=== PATIENT | female | born 1960 | race Caucasian/White ===

== ENCOUNTER 2018-02-15 13:31 | Emergency (ER) | payer OTHER, BC ==
[~2018-02-15 13:31] MED LIST changes: -DIA5 PO; -HYDR-385 PO; -LISD10TA; -META800T18 PO
--- NOTE | 2018-02-15 13:37 | ER Report ---
History and Physical Time Seen By MD: 13:37 HPI/ROS CHIEF COMPLAINT: Left lumbar and buttock pain HISTORY OF PRESENT ILLNESS: This is a 58-year-old female who presents to the emergency department via EMS for left buttock and lumbar pain. A solution for about 8:30 this morning she was bending over doing some housework and suddenly developed some left lumbar and buttock pain with some numbness and tingling down the left leg. Patient states the pain has increased she has spasms in her left buttock and now is unable to lift her left leg. Patient states the pain is very intense with any sort of movement. No loss of bowel or bladder. No recent fevers, aches or chills. REVIEW OF SYSTEMS: Constitutional: No fever, no chills. Eyes: No discharge. ENT: No sore throat. Cardiovascular: No chest pain, no palpitations. Respiratory: No cough, no shortness of breath. Gastrointestinal: No abdominal pain, no vomiting. Genitourinary: No hematuria. Musculoskeletal: As above. Skin: No rashes. Neurological: No headache. Allergies: Coded Allergies: Penicillins (Verified Allergy, Mild, HIVES, 07/13/15) bupropion (Verified Allergy, Unknown, 02/15/18) valacyclovir (Verified Allergy, Unknown, 02/15/18) venlafaxine (Verified Allergy, Unknown, 02/15/18) Home Meds Active Scripts Metaxalone (SKELAXIN) 800 Mg Tablet, 800 MG PO TID Y for prn, #12 TAB 0 Refills Prov:OSMAR BAILON [facility]- 02/15/18 Hydrocodone Bit/Acetaminophen (HYDROCODON-ACETAMINOPHEN 5-325) 1 Each Tablet, 1 EACH PO Q4-6H Y for PAIN, #8 TAB 0 Refills Prov:OSMAR BAILON [facility]-BC 02/15/18 Diazepam (VALIUM) 5 Mg Tablet, 5 MG PO 2-3XD, #15 TAB 0 Refills Prov:OSMAR BAILON [facility] 02/15/18 Methylprednisolone (METHYLPREDNISOLONE) 4 Mg Tab.ds.pk, 4 MG PO DIRECTED, #1 PACK 0 Refills Prov:OSMAR BAILON [facility]- 02/15/18 Reported Medications Lisdexamfetamine Dimesylate (Vyvanse) 10 Mg Tab.chew 02/15/18 Loratadine (CLARITIN) 10 Mg Tablet, 10 MG PO DAILY 03/15/15 Lisinopril (LISINOPRIL) 40 Mg Tablet, 40 MG PO QDAY 03/15/15 Dalfampridine (AMPYRA) 10 Mg Tabcr, 10 MG GT Q12H 03/15/15 Omeprazole Magnesium (Prilosec Otc) 20 Mg Tablet.dr, 20 MG PO QDAY, 0 Refills 04/14/09 Hydrochlorothiazide (Hydrochlorothiazide) 12.5 Mg Tablet, 25 MG PO DAILY, 0 Refills 04/14/09 Montelukast Sodium (Singulair) 10 Mg Tab, 10 MG PO QDAY, 0 Refills 04/14/09 Fluticasone Propionate (Flovent) 13 Gm Aer.w.adap, 13 GM IH BID, 0 Refills 04/14/09 Discontinued Reported Medications Methylphenidate Hcl (RITALIN) 20 Mg Tablet, 20 MG PO DAILY 07/13/15 [Glynia] No Conflict Check, 10 MG PO DAILY 03/15/15 Discontinued Scripts Methylprednisolone (METHYLPREDNISOLONE) 4 Mg Tab.ds.pk, 4 MG PO DIRECTED, #1 PACK Prov:KENYON [employer] 07/13/15 Past Medical/Surgical History Patient has a past medical and suitable history of hypertension, multiple sclerosis, asthma, suicide attempts. Hysterectomy. Lower back pain. Reviewed Nurses Notes: Yes Hx Smoking: No Smoking Status: Former Smoker Hx Substance Use Disorder: No Hx Alcohol Use: No Constitutional Vital Sign - Last 24 Hours 02/15/18 02/15/18 02/15/18 02/15/18 13:32 13:33 14:01 14:30 Temp 99.0 Pulse 84 79 Resp 20 B/P (MAP) 149/74 (99) 149/74 148/102 (117) Pulse Ox 97 98 O2 Delivery Room Air 02/15/18 02/15/18 02/15/18 02/15/18 15:00 15:05 15:30 15:35 Pulse ? B/P (MAP) 148/69 (95) ???/??? (5625) 02/15/18 02/15/18 02/15/18 02/15/18 15:52 16:00 16:05 16:10 Pulse 70 68 B/P (MAP) 131/71 (91) Pulse Ox 97 98 O2 Flow Rate 2.0 02/15/18 02/15/18 02/15/18 02/15/18 17:37 17:40 17:45 18:37 Pulse 76 76 B/P (MAP) 133/70 (91) 141/74 (96) Pulse Ox 98 97 Physical Exam General Appearance: The patient is alert, has no immediate need for airway protection and no signs of toxicity. Eyes: Pupils equal and round no pallor or injection. ENT, Mouth: Mucous membranes are moist. Respiratory: There are no retractions, lungs are clear to auscultation. Cardiovascular: Regular rate and rhythm, no murmurs, clicks or rubs. Gastrointestinal: Abdomen is soft and non tender, no masses, bowel sounds normal. Neurological: Alert and oriented 4. Moving all extremities. Following all commands. Patient has numbness and tingling to the left lower extremity, unable to lift the left lower external off the gurney. Skin: Warm and dry, no rashes. Musculoskeletal: Neck is supple non tender. Left lower back pain with palpation , no crepitus or obvious deformities. Pain down into the left buttock. Extremities are nontender, nonswollen and have full range of motion. DIFFERENTIAL DIAGNOSIS: After history and physical exam differential diagnosis was considered for back pain including but not limited to muscular pain, herniated disc, spine fracture, intra-abdominal causes and urinary tract infection. Medical Decision Making Data Points Result Diagram: 02/15/18 1415 02/15/18 1415 Laboratory Hematology Test 02/15/18 14:15 Red Blood Count 3.86 M/uL (4.17-5.56) Mean Corpuscular Volume 93.7 fL (80.0-96.0) Mean Corpuscular Hemoglobin 32.8 pg (26.0-33.0) Mean Corpuscular Hemoglobin Concent 35.0 g/dL (32.0-36.0) Red Cell Distribution Width 15.0 % (11.5-14.5) Mean Platelet Volume 7.7 fL (7.2-11.1) Neutrophils (%) (Auto) % (39.4-72.5) Lymphocytes (%) (Auto) % (17.6-49.6) Monocytes (%) (Auto) % (4.1-12.4) Eosinophils (%) (Auto) % (0.4-6.7) Basophils (%) (Auto) % (0.3-1.4) Nucleated RBC Relative Count (auto) /100WBC Neutrophils # (Auto) K/uL (2.0-7.4) Lymphocytes # (Auto) K/uL (1.3-3.6) Monocytes # (Auto) K/uL (0.3-1.0) Eosinophils # (Auto) K/uL (0.0-0.5) Basophils # (Auto) K/uL (0.0-0.1) Nucleated RBC Absolute Count (auto) K/uL Neutrophils % (Manual) 65 % (39.4-72.5) Lymphocytes % (Manual) 10 % (17.6-49.6) Monocytes % (Manual) 11 % (4.1-12.4) Eosinophils % (Manual) 14 % (0.4-6.7) Basophils % (Manual) 0 % (0.3-1.4) Peripheral Blood Smear Yes Y/N Erythrocyte Sedimentation Rate 25 mm/HOUR (0-30) Sodium Level 136 mmol/L (137-145) Potassium Level 3.7 mmol/L (3.5-5.0) Chloride Level 100 mmol/L (98-107) Carbon Dioxide Level 28 mmol/L (22-31) Blood Urea Nitrogen 13 mg/dl (7-18) Creatinine 0.70 mg/dl (0.52-1.04) Glomerular Filtration Rate Calc > 60.0 Random Glucose 96 mg/dl (75-110) Calcium Level 9.3 mg/dl (8.4-10.2) Total Bilirubin 0.7 mg/dl (0.2-1.3) Aspartate Amino Transf (AST/SGOT) 34 U/L (0-35) Alanine Aminotransferase (ALT/SGPT) 40 U/L (0-56) Alkaline Phosphatase 98 U/L (0-126) C-Reactive Protein 0.8 mg/dl (<1.0) Total Protein 7.2 g/dl (6.3-8.2) Albumin 3.9 g/dl (3.5-5.0) Chemistry Test 02/15/18 14:15 White Blood Count 5.7 k/uL (4.5-11.0) Red Blood Count 3.86 M/uL (4.17-5.56) Hemoglobin 12.7 g/dL (12.0-16.0) Hematocrit 36.2 % (34.0-47.0) Mean Corpuscular Volume 93.7 fL (80.0-96.0) Mean Corpuscular Hemoglobin 32.8 pg (26.0-33.0) Mean Corpuscular Hemoglobin Concent 35.0 g/dL (32.0-36.0) Red Cell Distribution Width 15.0 % (11.5-14.5) Platelet Count 295 K/uL (150-450) Mean Platelet Volume 7.7 fL (7.2-11.1) Neutrophils (%) (Auto) % (39.4-72.5) Lymphocytes (%) (Auto) % (17.6-49.6) Monocytes (%) (Auto) % (4.1-12.4) Eosinophils (%) (Auto) % (0.4-6.7) Basophils (%) (Auto) % (0.3-1.4) Nucleated RBC Relative Count (auto) /100WBC Neutrophils # (Auto) K/uL (2.0-7.4) Lymphocytes # (Auto) K/uL (1.3-3.6) Monocytes # (Auto) K/uL (0.3-1.0) Eosinophils # (Auto) K/uL (0.0-0.5) Basophils # (Auto) K/uL (0.0-0.1) Nucleated RBC Absolute Count (auto) K/uL Neutrophils % (Manual) 65 % (39.4-72.5) Lymphocytes % (Manual) 10 % (17.6-49.6) Monocytes % (Manual) 11 % (4.1-12.4) Eosinophils % (Manual) 14 % (0.4-6.7) Basophils % (Manual) 0 % (0.3-1.4) Peripheral Blood Smear Yes Y/N Erythrocyte Sedimentation Rate 25 mm/HOUR (0-30) Glomerular Filtration Rate Calc > 60.0 Calcium Level 9.3 mg/dl (8.4-10.2) Total Bilirubin 0.7 mg/dl (0.2-1.3) Aspartate Amino Transf (AST/SGOT) 34 U/L (0-35) Alanine Aminotransferase (ALT/SGPT) 40 U/L (0-56) Alkaline Phosphatase 98 U/L (0-126) C-Reactive Protein 0.8 mg/dl (<1.0) Total Protein 7.2 g/dl (6.3-8.2) Albumin 3.9 g/dl (3.5-5.0) EKG/Imaging Imaging EXAMINATION: MRI Lumbar spine without and with intravenous contrast HISTORY: Low back pain. Unable to left the left leg. COMPARISON: None available. TECHNIQUE: Multi-planar, multi-sequence lumbar spine MRI was performed before and after IV contrast. CONTRAST: 15 mL of IV MultiHance FINDINGS: Alignment: 3 mm of retrolisthesis of L1 over L2 and L2 over L3. Vertebral marrow signal: Discogenic fatty marrow changes at T11-T12. Mild discogenic bone marrow edema at L1-L2. Distal thoracic cord: Negative. Conus: negative, terminates at L1-L2 Cauda equina: Negative. Paravertebral soft tissues: Negative. Visualized abdominal and pelvic structures: Negative. Enhancement pattern: Mild discogenic bone marrow enhancement at L1-L2. Otherwise negative. Disc Spaces: Lower thoracic spine: Mild degenerative changes in the lower thoracic spine with mild bilateral neural foraminal stenosis at T10-T11. L1-2: Grade 1 retrolisthesis. Mild to moderate disc height loss with circumferential disc bulge, facet hypertrophy, and ligamentum flavum thickening. Mild spinal canal stenosis. Moderate bilateral neural foraminal stenosis. L2-3: Grade 1 retrolisthesis. Mild disc height loss with circumferential disc bulge, facet hypertrophy, and ligamentum flavum thickening. Mild spinal canal stenosis. Mild to moderate bilateral neural foraminal stenosis. L3-4: Minimal disc bulge. Mild to moderate facet hypertrophy and ligamentum flavum thickening. Mild spinal canal stenosis. Mild bilateral neural foraminal stenosis. L4-5: Circumferential disc bulge with superimposed left foraminal disc extrusion. Severe facet hypertrophy and ligamentum flavum thickening. Severe spinal canal stenosis. Moderate right and severe left neural foraminal stenosis. L5-S1: Moderate to severe disc height loss with circumferential disc bulge, facet hypertrophy, and ligamentum flavum thickening. Moderate right and severe left lateral recess stenosis. Moderate central spinal canal stenosis. Moderately severe bilateral neural foraminal stenosis. IMPRESSION: Multilevel degenerative disc disease and facet hypertrophy with grade 1 retrolisthesis of L1 over L2 and L2 over L3. Findings are most severe at L4-L5 and L5-S1. Please see above report for level by level description. Report Dictated By: Osmar Hughes MD at 02/15/2018 5:25 PM Report E-Signed By: Osmar Hughes MD at 02/15/2018 5:33 PM WSN:[email or web address] ED Course/Re-evaluation Clinical Indication for ER IV: Hydration, IV Access ED Course The patient was amended to room. His ribs were obtained. Diagnoses were considered. IV was started. A CBC, CMP were obtained. Lab studies unremarkable. Patient was given 125 mg IV site Medrol, 4 mg IV Zofran, 4 mg IV morphine, 30 mg IV Norflex, 50 g IV fentanyl 2, 0.5 mg IV Ativan, 5 mg IV diazepam. Initial attempt at the MRI was unsuccessful with the Ativan, patient stated that the pain was too intense I did order the diazepam which seemed to help relax her lower back. To complete the lumbar MRI. The MRI Multilevel degenerative disc disease and facet hypertrophy with grade 1 retrolisthesis of L1 over L2 and L2 over L3. Findings are most severe at L4-L5 and L5-S1 I did review these results with the patient. I did tell him that I spoke with Dr. Palafox regarding her case and his recommendation was to continue the steroids with a Medrol Dosepak, manage the pain and have her follow-up with him and his office on Tuesday. The patient was in agreement with this plan of care. Patient was also concerned about her inability to ambulate at home they were stopped by her work and use a wheelchair to get her in and out of the house, the is at the bedside and able to help. Patient states she is willing to give this a try. I did send the prescription for Valium, hydrocodone, Medrol Dosepak and Skelaxin to the patient's pharmacy. The patient was in agreement with this plan of care and discharged home. Patient also understands that if she needs to return for any other concerns especially saddle anesthesias loss of bowel or bladder she will return immediately. 02/15/2018 5:58:22 pm I did go back in to reevaluate the patient, she states the pain is significantly improved however she is still unable to lift her left leg off the gurney. Once again I did tease out if this is an inability to lift the leg because of increased pain or she physically cannot lift her leg patient states it's not a pain it's inhibiting her it's the inability to actually lift the leg off the gurney. I am contacting the orthopedist behavioral intervention specialist for consultation. 02/15/2018 6:23:45 pm I did speak with Dr. Palafox regarding the patient's case , he said go ahead and place her on a Medrol Dosepak treat her pain go ahead and send her home. If she needs to return to the emergency department she concerned might do so. He will see her in his clinic Tuesday. Patient does understand that if she has any loss of bowel or bladder any saddle paresthesias that she is to return to the emergency department immediately. Decision to Disposition Date: Feb 15, 2018 Decision to Disposition Time: 18:23 Depart Departure Latest Vital Signs Vital Signs Date Time Temp Pulse Resp B/P (MAP) Pulse Ox O2 Delivery O2 Flow Rate FiO2 02/15/18 18:37 141/74 (96) 02/15/18 17:45 76 97 02/15/18 15:52 2.0 02/15/18 13:33 99.0 20 Room Air Impression: Primary Impression: Lumbar back pain with radiculopathy affecting left lower extremity Additional Impressions: Lumbar degenerative disc disease Left leg pain Condition: Improved Disposition: HOME OR SELF-CARE Referrals: DIOGENES AVENDANO DO (PCP) HOLLI PALAFOX MD New Scripts Metaxalone (SKELAXIN) 800 Mg Tablet 800 MG PO TID Y for prn, #12 TAB 0 Refills Prov: OSMAR BAILON [employer]-[facility] 02/15/18 Hydrocodone Bit/Acetaminophen (HYDROCODON-ACETAMINOPHEN 5-325) 1 Each Tablet 1 EACH PO Q4-6H Y for PAIN, #8 TAB 0 Refills Prov: OSMAR BAILON [employer] 02/15/18 Diazepam (VALIUM) 5 Mg Tablet 5 MG PO 2-3XD, #15 TAB 0 Refills Prov: OSMAR BAILON [employer] 02/15/18 Methylprednisolone (METHYLPREDNISOLONE) 4 Mg Tab.ds.pk 4 MG PO DIRECTED, #1 PACK 0 Refills Prov: OSMAR BAILON-BC 02/15/18 Patient Instructions: Acute Low Back Pain (ED), Degenerative Disc Disease (ED) , Lumbar Radiculopathy (ED) Additional Instructions: Drink plenty of water. Try to get as much rest as possible. Take the Medrol Dosepak as indicated. Take the Valium as directed. Take the Hydrocodone for severe pain. Be very careful taking the Valium and hydrocodone together, they can decrease respiratory drive. No drinking or driving while taking controlled substances. Take the Skelaxin for muscle spasms. Called Dr. Palafox's office in the morning to schedule a follow-up appointment. Return to the emergency department for numbness or tingling in the genital region, loss of bowel or bladder, or severe intractable pain. Problem Qualifiers OSMAR BAILON [employer] Feb 15, 2018 13:37
[2018-02-15] MEDS ORDERED: LISD10TA (13:41)
[2018-02-15] MEDS ORDERED: ONDANSETRON 4 MG/2 ML VIAL IVP ONE (13:55)
[2018-02-15] MEDS ORDERED: MORPHINE 4 MG/ML SDV IVP ONE (13:55)
[2018-02-15] MEDS ORDERED: ORPHENADRINE 60MG/2ML INJ IVP ONE (13:55)
[2018-02-15] MEDS ORDERED: methylPREDNIS SUCC 125 MG/2ML IVP ONE (13:55)
[2018-02-15 14:31] LABS: PLATELET COUNT, AUTOMATED 295 K/uL (150-450)
[2018-02-15] MEDS ORDERED: LORazepam 2 MG/ML VIAL IVP ONE (15:05)
[2018-02-15] MEDS ORDERED: fentaNYL CITR 100 MCG/2 ML AMP IVP ONE ×2 (15:05→15:40)
[2018-02-15] MEDS ORDERED: DIAZEPAM 50 MG/10 ML MDV IVP ONE (15:40)
[2018-02-15] MEDS ORDERED: GADOBENATE 529MG/1ML 15ML VIAL IVP ONE (16:48)
--- NOTE | 2018-02-15 17:36 | RADIOLOGY IMAGING REPORT ---
FACILITY: [facility] PATIENT NAME: Verito Guo : 1960 MR: [id number] V: [id number] EXAM DATE: ORDERING PHYSICIAN: OSMAR BAILON TECHNOLOGIST: Location: [facility] - [place] Patient: Verito Guo : 1960 Visit/Account:[id number] Date of Sevice: 02/15/2018 EXAMINATION: MRI Lumbar spine without and with intravenous contrast HISTORY: Low back pain. Unable to left the left leg. COMPARISON: None available. TECHNIQUE: Multi-planar, multi-sequence lumbar spine MRI was performed before and after IV contrast. CONTRAST: 15 mL of IV MultiHance FINDINGS: Alignment: 3 mm of retrolisthesis of L1 over L2 and L2 over L3. Vertebral marrow signal: Discogenic fatty marrow changes at T11-T12. Mild discogenic bone marrow marky a at L1-L2. Distal thoracic cord: Negative. Conus: negative, terminates at L1-L2 Cauda equina: Negative. Paravertebral soft tissues: Negative. Visualized abdominal and pelvic structures: Negative. Enhancement pattern: Mild discogenic bone marrow enhancement at L1-L2. Otherwise negative. Disc Spaces: Lower thoracic spine: Mild degenerative changes in the lower thoracic spine with mild bilateral neura l foraminal stenosis at T10-T11. L1-2: Grade 1 retrolisthesis. Mild to moderate disc height loss with circumferential disc bulge, face t hypertrophy, and ligamentum flavum thickening. Mild spinal canal stenosis. Moderate bilateral neura l foraminal stenosis. L2-3: Grade 1 retrolisthesis. Mild disc height loss with circumferential disc bulge, facet hypertroph y, and ligamentum flavum thickening. Mild spinal canal stenosis. Mild to moderate bilateral neural fo raminal stenosis. L3-4: Minimal disc bulge. Mild to moderate facet hypertrophy and ligamentum flavum thickening. Mild s henry canal stenosis. Mild bilateral neural foraminal stenosis. L4-5: Circumferential disc bulge with superimposed left foraminal disc extrusion. Severe facet hypert rophy and ligamentum flavum thickening. Severe spinal canal stenosis. Moderate right and severe left neural foraminal stenosis. L5-S1: Moderate to severe disc height loss with circumferential disc bulge, facet hypertrophy, and li gamentum flavum thickening. Moderate right and severe left lateral recess stenosis. Moderate central spinal canal stenosis. Moderately severe bilateral neural foraminal stenosis. IMPRESSION: Multilevel degenerative disc disease and facet hypertrophy with grade 1 retrolisthesis of L1 over L2 and L2 over L3. Findings are most severe at L4-L5 and L5-S1. Please see above report for level by level description. Report Dictated By: Osmar Hughes MD at 02/15/2018 5:25 PM Report E-Signed By: Osmar Hughes MD at 02/15/2018 5:33 PM WSN:[email or web address]
[2018-02-15] MEDS ORDERED: META800T18 PO (18:32)
[2018-02-15] MEDS ORDERED: METH4TAB66 PO (18:32)
[2018-02-15] MEDS ORDERED: DIA5 PO (18:32)
[2018-02-15] MEDS ORDERED: HYDR-385 PO (18:32)
[2018-02-15 18:37] VITALS: BP 141/74
== END 2018-02-15 18:44 | disposition home or self-care (01) ==
LOC: ER 13:39
DX: M47.816 Spondylosis without myelopathy or radiculopathy, lumbar region (principal)
CPT/HCPCS: 72158; 85025; 85651; 86140; 96374; 96375; 96376; 99284; A9577; J2060; J2270; J2360; J2405; J2930; J3010; J3360; 82040; 82247; 82310; 82374; 82435; 82565; 82947; 84075; 84132; 84155; 84295; 84450; 84460; 84520

== ENCOUNTER → 2018-02-15 | Outpatient (CLI) | payer OTHER, BC ==
[~2018-02-15] MED LIST: CEP500 PO; CLI150 PO; DALFAM10PT GT; DIA5 PO; FLU220R IH; HYDR-385 PO; HYDR12.561 PO; LISD10TA; LISI-374 PO; LORA-802 PO; META800T18 PO; METH20TA33 PO; METH4TAB66 PO; METO-1 PO; MON10 PO; OMEP-218 PO; REBIF44PT SQ; SULF-198 PO; [UNRECOGNIZED DRUG - OTHER] PO
== END ==
LOC: AMB 13:08
PROVIDERS: ATTEND Nurse Practitioner
DX: M79.672 Pain in left foot (principal); R25.2 Cramp and spasm; G35 Multiple sclerosis
CPT/HCPCS: A0425; A0429

== ENCOUNTER 2018-03-06 00:50 | Observation (INO) | payer BC, OTHER ==
[2018-03-06] VITALS (16 sets, daily range): BP systolic 98–135; BP diastolic 51–89
[~2018-03-06] VITALS: Ht 165.1 cm; Wt 95.3 kg
[~2018-03-06 00:50] MED LIST changes: +ALBU8.5H IH; +DIA5 PO; +GLUC-198 PO; +HYDR-385 PO; +LISD10TA; +META800T18 PO; +MOM PO; +PARO-243 PO; +POTA99TA6 PO
[2018-03-06] MEDS ORDERED: LIDOCAINE/SOD BICARB 8.4% SYR ID ONE (11:00)
[2018-03-06] MEDS ORDERED: NORMOSOL R SOLN(*) 1000 ML BAG 1,000 ML IV PRN (11:00)
[2018-03-06] MEDS ORDERED: ACETAMINOPHEN 500 MG TAB PO ONE (11:00)
[2018-03-06] MEDS ORDERED: MIDAZOLAM 2 MG/2 ML VIAL IVP PRN (11:00)
[2018-03-06] MEDS ORDERED: PREGABALIN 150 MG CAPSULE PO ONE (11:00)
[2018-03-06] MEDS ORDERED: CLINDAMYCIN(*) 900 MG/NS 50 ML 50 ML IVPB ONE (11:00)
[2018-03-06] MEDS ORDERED: fentaNYL CITR 250 MCG/5 ML AMP ONE (11:47)
[2018-03-06] MEDS ORDERED: PROPOFOL EMUL(*) 10MG/ML 20 ML 20 ML ONE (11:48)
[2018-03-06] MEDS ORDERED: ONDANSETRON 4 MG/2 ML VIAL ONE (11:48)
[2018-03-06] MEDS ORDERED: DEXAMETHASONE SOD PHOS 10MG/ML ONE (11:48)
[2018-03-06] MEDS ORDERED: LIDOCAINE MPF 1% 5 ML VIAL ONE (11:48)
[2018-03-06] MEDS ORDERED: KETAMINE HCL 200 MG/20 ML MDV ONE (11:52)
[2018-03-06] MEDS ORDERED: ROCURONIUM BROM 10 MG/ML 10 ML ONE (12:30)
[2018-03-06] MEDS ORDERED: ePHEDrine 25 MG/5 ML DISP.SYR IVP ONE (13:29)
[2018-03-06] MEDS ORDERED: SUGAMMADEX SOD 500 MG/5 ML SDV ONE (13:41)
[2018-03-06] MEDS ORDERED: fentaNYL CITR 100 MCG/2 ML AMP ONE (14:34)
--- NOTE | 2018-03-06 15:28 | RADIOLOGY IMAGING REPORT ---
FACILITY: [facility] PATIENT NAME: Verito Guo : 1960 MR: [id number] V: [id number] EXAM DATE: ORDERING PHYSICIAN: HOLLI OWLF TECHNOLOGIST: Location: [facility] [place] Patient: Verito Guo : 1960 Visit/Account:[id number] Date of Sevice: 03/06/2018 Examination: Lumbar spine single view HISTORY: Laminectomies. FINDINGS: Single crosstable lateral view is obtained of the lumbar spine intraoperatively. There are multiple surgical retractors, surgical instruments and gauze material overlying the dorsal soft tiss ues of the low lumbar spine. These are seen centered at the L4-L5 disc space. There is loss in disc height seen at L4-5 and L5-S1. IMPRESSION: 1. Limited intraoperative lumbar radiograph with findings as above. Report Dictated By: Darrell Feliciano at 03/06/2018 3:23 PM Report E-Signed By: Darrell Feliciano at 03/06/2018 3:25 PM WSN:[id number]
[2018-03-06] MEDS ORDERED: oxyCODONE HCL 5 MG CAP PO PRN (15:30)
[2018-03-06] MEDS ORDERED: ACETAMINOPHEN(*)1000 MG/100 ML 100 ML IVPB PRN (15:30)
[2018-03-06] MEDS ORDERED: BENZOCAINE/MENTHOL 1 EACH LOZG PO PRN (15:30)
[2018-03-06] MEDS ORDERED: diphenhydrAMINE 25 MG CAP PO PRN (15:30)
[2018-03-06] MEDS ORDERED: BISACODYL 10 MG SUPP PR PRN (15:30)
[2018-03-06] MEDS ORDERED: ACETAMINOPHEN 500 MG TAB PO PRN (15:30)
[2018-03-06] MEDS ORDERED: ONDANSETRON 4 MG/2 ML VIAL IVP PRN (15:30)
[2018-03-06] MEDS ORDERED: LR(*) 1000 ML BAG 1,000 ML IV PRN (15:30)
[2018-03-06] MEDS ORDERED: HYDROmorphone HCL 2 MG/ML SDV IVP PRN (15:30)
[2018-03-06] MEDS ORDERED: MAGNESIUM HYDROXIDE* 30ML UDCP PO PRN (15:30)
[2018-03-06] MEDS ORDERED: FLUSH 10 ML SYR IVP PRN (15:30)
[2018-03-06] MEDS ORDERED: APAP/HYDROCODONE 325/5 TAB PO PRN (15:30)
[2018-03-06] MEDS: DIAZEPAM 5 MG TAB PO PRN (15:41)
[2018-03-06] MEDS ORDERED: ALBUTEROL 8 GM INHALER INH PRN (17:15)
--- NOTE | 2018-03-06 17:25 | Hospitalist Consultation ---
History of Present Illness Requesting Physician Dr. Palafox Reason for Consult MS, Hypertension, Depression Chief Complaint s/p laminectomies History of Present Illness She was admitted after a multi-level laminectomy. It is reported the surgery went well and without complication. History Problems: (1) Depression Status: Chronic (2) Hypertension Status: Chronic (3) Multiple sclerosis Status: Chronic (4) Asthma Status: Chronic Home Meds Active Scripts Metaxalone (SKELAXIN) 800 Mg Tablet, 800 MG PO TID Y for prn, #12 TAB 0 Refills Prov:SANTIAGO BAILON [facility] 02/15/18 Hydrocodone Bit/Acetaminophen (HYDROCODON-ACETAMINOPHEN 5-325) 1 Each Tablet, 1 EACH PO Q4-6H Y for PAIN, #8 TAB 0 Refills Prov:SANTIAGO BAILON [facility] 02/15/18 Diazepam (VALIUM) 5 Mg Tablet, 5 MG PO 2-3XD, #15 TAB 0 Refills Prov:SANTIAGO BAIOLN [facility] 02/15/18 Methylprednisolone (METHYLPREDNISOLONE) 4 Mg Tab.ds.pk, 4 MG PO DIRECTED, #1 PACK 0 Refills Prov:SANTIAGO BAILON [facility] 02/15/18 Reported Medications Potassium Gluconate (POTASSIUM) 99 Mg Tablet, PO 03/03/18 Glucosa Hartley 2KCL/Chondroitin Hartley (GLUCOSAMINE & CHONDROITIN CAP) 1 Each Capsule, 2 EACH PO BID, CAPSULE 03/03/18 Paroxetine Hcl (PAXIL) 20 Mg Tablet, 40 MG PO QDAY, TAB 03/03/18 Albuterol Sulfate 90 Mcg/Act (PROAIR HFA 90 MCG/ACT) 8.5 Gm Hfa.aer.ad, 1-2 PUFF IH PRN, INHALER 03/03/18 Lisdexamfetamine Dimesylate (Vyvanse) 10 Mg Tab.chew 02/15/18 Lisinopril (LISINOPRIL) 40 Mg Tablet, 40 MG PO QDAY 03/15/15 Dalfampridine (AMPYRA) 10 Mg Tabcr, 10 MG GT Q12H 03/15/15 Omeprazole Magnesium (Prilosec Otc) 20 Mg Tablet.dr, 20 MG PO QDAY, 0 Refills 04/14/09 Hydrochlorothiazide (Hydrochlorothiazide) 12.5 Mg Tablet, 25 MG PO DAILY, 0 Refills 04/14/09 Montelukast Sodium (Singulair) 10 Mg Tab, 10 MG PO QDAY, 0 Refills 04/14/09 Fluticasone Propionate (Flovent) 13 Gm Aer.w.adap, 13 GM IH BID, 0 Refills 04/14/09 Discontinued Reported Medications Magnesium Hydroxide (MILK OF MAGNESIA) 400 Mg/5 Ml Oral.susp, PO, BOTTLE 03/03/18 Loratadine (CLARITIN) 10 Mg Tablet, 10 MG PO DAILY 03/15/15 Allergies: Coded Allergies: Penicillins (Verified Allergy, Mild, HIVES, 07/13/15) bupropion (Verified Allergy, Unknown, 02/15/18) valacyclovir (Verified Allergy, Unknown, 02/15/18) venlafaxine (Verified Allergy, Unknown, 02/15/18) Patient History: FH: Alzheimers disease MOTHER FH: HTN (hypertension) MOTHER FH: asthma BROTHER OR SISTER FH: dementia MOTHER FHx: brain tumor FATHER, , Age:58 Hx Smoking: No Smoking Status: Former Smoker Hx Alcohol Use: No (1 per week) Hx Substance Use Disorder: No Review of Systems All Systems Reviewed/Normal: Yes, Except as Noted Exam Vital Signs Vital Signs Date Time Temp Pulse Resp B/P (MAP) Pulse Ox O2 Delivery O2 Flow Rate FiO2 03/06/18 15:30 88 16 96 03/06/18 11:35 98.2 135/85 (102) Room Air General Appearance: Alert, Awake, No Acute Distress, Afebrile Neuro: No Gross deficits Cardiovascular: Regular Rate and Rhythm Respiratory: No Respiratory Distress, Clear to Auscultation Extremities: Perfused Psych: Alert & Oriented X3, Appropriate Mood & Affect Assessment and Plan Problems: (1) S/P laminectomy Status: Acute Assessment & Plan: Followed by Dr. Palafox. (2) Multiple sclerosis Status: Chronic Assessment & Plan: She is on chronic treatment with Ampyra oral and Ocrevus infusions. She does the infusions twice yearly, and her last infusion was a few weeks ago. She will bring her Ampyra medication from home to take during admission. (3) Hypertension Status: Chronic Assessment & Plan: She is on chronic treatment with Hydrochlorothiazide and Lisinopril. The Lisinopril has been restarted with hold parameters. (4) Depression Status: Chronic Assessment & Plan: She is on chronic treatment with Vyvanse and Paroxetine. She will bring her Vyvanse from home to take during admission. She will be restarted on Paroxetine also. (5) Asthma Status: Chronic Assessment & Plan: She is on chronic treatment with Flovent inhaler and Singulair. Venous Thromboembolism Antithrombotics Is Pt On Any Antithrombotics?: No ALANA SINGHP Mar 06, 2018 17:24
[2018-03-06] MEDS: FLUTICASONE PROP INH SCH (18:02)
[2018-03-06] MEDS ORDERED: NS(*) 0.9% 250 ML BAG 250 ML ONE (20:13)
[2018-03-06] MEDS: DALFAMPRIDINE 10 MG PO SCH (20:17)
[2018-03-06] MEDS: DOCUSATE SODIUM 100 MG CAP PO SCH (20:17)
[2018-03-06] MEDS: CLINDAMYCIN(*) 900 MG/NS 50 ML 50 ML IVPB SCH (20:18)
[2018-03-07] MEDS: DIAZEPAM 5 MG TAB PO PRN ×2 (00:34→06:53)
[2018-03-07 02:25] VITALS: BP 123/66
[2018-03-07] MEDS: CLINDAMYCIN(*) 900 MG/NS 50 ML 50 ML IVPB SCH (03:58)
[2018-03-07] MEDS: FLUTICASONE PROP INH SCH (05:33)
[2018-03-07 07:46] VITALS: BP 117/60
[2018-03-07] MEDS ORDERED: DOCU240C84 PO (07:59)
[2018-03-07] MEDS ORDERED: DIA5 PO (08:00)
[2018-03-07] MEDS ORDERED: LOR5/325 PO (08:01)
[2018-03-07] MEDS ORDERED: PANTOPRAZOLE SOD 40 MG TABEC PO SCH (09:00)
[2018-03-07] MEDS: DALFAMPRIDINE 10 MG PO SCH (09:00)
[2018-03-07] MEDS ORDERED: LISDEXAMFETAMINE 20 MG PO SCH (09:00)
[2018-03-07] MEDS ORDERED: LISINOPRIL 20 MG TAB PO SCH (09:00)
[2018-03-07] MEDS ORDERED: PATIENT'S OWN MED PO SCH (09:00)
[2018-03-07] MEDS ORDERED: MONTELUKAST SODIUM 10 MG TAB PO SCH (09:00)
[2018-03-07] MEDS ORDERED: PARoxetine HCL 20 MG TAB PO SCH (09:00)
--- NOTE | 2018-03-07 09:18 | Hospitalist Progress Note ---
Subjective Progress Notes Subjective She was admitted s/p laminectomies. She had no acute events overnight. Patient Complains of: Cardiovascular: No: Chest Pain Respiratory: No: Shortness of Breath Physical Exam Vital Signs Date Time Temp Pulse Resp B/P (MAP) Pulse Ox O2 Delivery O2 Flow Rate FiO2 03/07/18 07:48 95 Room Air 03/07/18 07:46 98.9 89 14 117/60 (79) 03/07/18 02:25 0.5 General Appearance: Alert, Awake, No Acute Distress, Afebrile Neuro: No Gross deficits Cardiovascular: Regular Rate and Rhythm Respiratory: No Respiratory Distress, Clear to Auscultation GI: Soft and Non-Tender Extremities: Perfused, No Edema Psych: Alert & Oriented X3, Appropriate Mood & Affect Assessment and Plan Problems: (1) S/P laminectomy Status: Acute Assessment & Plan: Followed by Dr. Palafox. (2) Multiple sclerosis Status: Chronic Assessment & Plan: She is on chronic treatment with Ampyra oral and Ocrevus infusions. She does the infusions twice yearly, and her last infusion was a few weeks ago. She will bring her Ampyra medication from home to take during admission. (3) Hypertension Status: Chronic Assessment & Plan: She is on chronic treatment with Hydrochlorothiazide and Lisinopril. The Lisinopril has been restarted with hold parameters. (4) Depression Status: Chronic Assessment & Plan: She is on chronic treatment with Vyvanse and Paroxetine. She will bring her Vyvanse from home to take during admission. She will be restarted on Paroxetine also. (5) Asthma Status: Chronic Assessment & Plan: She is on chronic treatment with Flovent inhaler and Singulair. Exam Sepsis Risk: No Definite Risk ALANA SINGH WIRE PULLER Mar 07, 2018 09:18
[2018-03-07] MEDS: DOCUSATE SODIUM 100 MG CAP PO SCH (09:29)
--- NOTE | 2018-03-07 12:23 | OPERATIVE REPORT 1 ---
EVENT DATE: March 06, 2018 SURGEON: John Palafox MD ANESTHESIOLOGIST: Skip Boateng MD ANESTHESIA: General endotracheal DIRECTOR MORTGAGE: SOLOMON Weiss PREOPERATIVE DIAGNOSIS L4-L5, L5-S1 lumbar spinal stenosis with neurogenic claudication and radiculopathy. POSTOPERATIVE DIAGNOSIS L4-L5, L5-S1 lumbar spinal stenosis with neurogenic claudication and radiculopathy. PROCEDURE PERFORMED L4-L5, L5-S1 laminectomy. IV FLUIDS 1700 mL. ESTIMATED BLOOD LOSS 120 mL. IMPLANTS None. SPECIMENS None. DRAINS None. COMPLICATIONS None. DISPOSITION Post anesthesia care unit. INDICATION FOR SURGERY Ms. Guo is a 58-year-old female who presented to my clinic with a long and worsening history of left greater than right radiating pain, numbness and tingling. In addition to this, she noted a decrease in walking tolerance secondary to heaviness and tiredness in her legs. Her physical examination was significant for positive straight leg raising test on the left, negative on the right. Muscle strength was 5 out of 5 in all myotomes, and light touch sensation was intact in all dermatomes. She had failed physical therapy injections, medications and activity modifications, and her MRI showed severe stenosis at L4-L5 and L5-S1 with no evidence of instability. Secondary to ongoing symptoms, she was offered and elected to undergo L4 to S1 laminectomy. Prior to surgery, I explained in detail to the patient the possible risks of surgery. This included bleeding, infection, damage to surrounding structures, persistent and/or worsening pain, nerve root injury, spinal fluid leak, meningitis, , blindness, sexual dysfunction, autonomic nervous system dysfunction and other unforeseen medical and surgical complications. An understanding that spinal surgery is more predictive at improving extremity discomfort than axial spine pain was stressed. DESCRIPTION OF PROCEDURE On the day of surgery, the patient was met in the preoperative hold area, and all questions were answered. The operative site was identified and marked by myself. The patient was brought in good condition to the operating room, and after succumbing to anesthesia, was positioned in the prone position on a Jeremias table. All bony protuberances and soft tissues were well padded in the standard fashion. Care was taken to maintain appropriate perfusion pressures during anesthesia. Preoperative antibiotics were administered according to the appropriate timing schedule. At the conclusion of the procedure, sponge and needle counts were correct x two. Final time out was undertaken by members of the operating team to confirm correct patient, correct levels, correct surgery. The patient was then prepped and draped in standard sterile orthopedic fashion, and a midline incision was made over the intended surgical levels. Sharp dissection was carried down through fat and subcutaneous tissue, and soft tissues were elevated off the posterior elements in a subperiosteal manner. A lateral radiograph was obtained to confirm correct levels. The spinous processes of L4 and L5 were removed using a Leksell rongeur and a Synapse bone cutter. The laminas were thinned down the middle with a combination of the Leksell rongeur and a high-speed stacy. The canal was entered by undermining the superior insertion of the ligamentum flavum from the undersurface of the L5 lamina. A [place] elevator was used to separate any dural adhesions from surrounding bone and soft tissue prior to the use of the Kerrison punch. A midline decompression was performed using a 4-0 Kerrison rongeur. We then performed bilateral lateral recess decompressions with a combination of the 4-0 and 3-0 Kerrison rongeur. A Cr elevator and a Dent probe were used to check for adequate decompression of the lateral recesses as well as the foramina at the L4-L5 and L5-S1 levels. Meticulous hemostasis was then obtained , and the wound was irrigated with copious sterile saline solution. A final check of the decompression was performed, which was found to be excellent. The wound was then closed in layers using interrupted sutures for the deep fascia, inverted interrupted sutures for the subcutaneous tissue and then a running subcuticular skin stitch. Sponge and needle counts were correct x two. POSTOPERATIVE CARE PLAN Ms. Guo will remain in the hospital until she meets discharge criteria. She will then go home and follow up with me in two weeks time for examination and wound check. ARACELY
== END 2018-03-07 10:00 | disposition home or self-care (01) ==
LOC: OR 00:50 → MED 15:30
PROVIDERS: ADMIT Orthopaedic Surgery; ATTEND Orthopaedic Surgery
DX: M48.062 Spinal stenosis, lumbar region with neurogenic claudication (principal); I10 Essential (primary) hypertension; F32.9 Major depressive disorder, single episode, unspecified; G35 Multiple sclerosis; J45.998 Other asthma
CPT/HCPCS: 36415; 63030; 63035; 72020; 86850; 86900; 86901; 94640; 97116; 97161; G0378; J1100; J2001; J2250; J2405; J2704; J3010; J3490; J3535

== ENCOUNTER → 2018-06-09 | Outpatient (CLI) | payer BC ==
[~2018-06-09] MED LIST changes: +DOCU240C84 PO; +LOR5/325 PO
--- NOTE | 2018-06-09 15:46 | RADIOLOGY IMAGING REPORT ---
FAC[place] [facility] [place]IENT NAME: Verito Guo : 1960 MR: [id number] V: [id number] EXAM DATE: ORDERING PHYSICIAN: RITA TORRES TECHNOLOGIST: Location: [facility] [place] Patient: Verito Guo : 1960 Visit/Account:[id number] Date of Sevice: 06/09/2018 EXAMINATION: C SPINE W/O CONTRAST INDICATION: Multiple sclerosis COMPARISON: January 10, 2012 TECHNIQUE: Multiplane MR imaging was performed through the cervical spine without contrast. FINDINGS: Vertebral body height: Normal Cord signal: Unchanged left-sided C2 level cord high signal. Unchanged left-sided C3 level cord high signal. Punctate high signal within the posterior right cord at the upper C4 level is unchanged. N o additional cord signal abnormality. Marrow signal: Normal Prevertebral and paraspinal soft tissues: Normal C2-3: Normal C3-4: Minimal unchanged disc protrusion, mild unchanged canal narrowing, moderate unchanged left fora whit narrowing. Moderate right foraminal narrowing has increased. C4-5: Minimal new disc bulge. No canal narrowing. Moderate right and mild to moderate left unchange d foraminal narrowing. C5-6: Moderate unchanged disc space degeneration. Small unchanged disc protrusion. Moderate unchang ed canal narrowing, moderate unchanged bilateral foraminal narrowing. C6-7: Moderate unchanged disc space degeneration, unchanged posterior endplate spurring. Minimal dis c protrusion has decreased in size. Moderate to severe canal narrowing has slightly decreased. Nancy re left and moderate right unchanged foraminal narrowing. C7-T1: Normal IMPRESSION: 1. Multifocal unchanged cord high signal in keeping with residua of prior demyelination. No new cor d signal abnormality. 2. Moderate unchanged C5-6 and moderate to severe unchanged C6-7 canal narrowing. 3. Multilevel foraminal narrowing, see level by level comments above. Report Dictated By: Augie Villafuerte MD at 06/09/2018 3:36 PM Report E-Signed By: Augie Villafuerte MD at 06/09/2018 3:42 PM WSN:[id number]
== END ==
LOC: MRI 06-02 04:02
PROVIDERS: ATTEND Psychiatry & Neurology Neurology
DX: M47.892 Other spondylosis, cervical region (principal)
CPT/HCPCS: 72141

== ENCOUNTER → 2018-07-06 | Outpatient (CLI) | payer BC ==
--- NOTE | 2018-07-06 15:10 | RADIOLOGY IMAGING REPORT ---
FACILITY: [facility] PATIENT NAME: Verito Guo : 1960 MR: [id number] V: [id number] EXAM DATE: ORDERING PHYSICIAN: RITA TORRES TECHNOLOGIST: Location: [facility] - [place] Patient: Verito Guo : 1960 Visit/Account:[id number] Date of Sevice: 07/06/2018 EXAMINATION: MRI Brain without intravenous contrast HISTORY: Multiple sclerosis. COMPARISON: 12/31/2013. TECHNIQUE: Multi-planar, multi-sequence brain MRI was performed without IV contrast administration. FINDINGS: Brain volume: Mild generalized volume loss. Sagittal midline structures: Negative. Ventricles: Negative. Acute ischemic changes: None. Hemorrhage: None. Masses / edema: None. Sage-white: Negative. White matter: Moderate patchy FLAIR hyperintensity in the supratentorial white matter consistent wit h multiple sclerosis. No restricted diffusion. No significant change. Vessels: Negative. Extra-axial: Negative. Calvarium / scalp: Negative. Skull base: Negative. Visualized sinuses / orbits: Negative. Visualized upper neck: Negative. IMPRESSION: No significant change compared with 12/31/2013. Report Dictated By: Osmar Hughes MD at 07/06/2018 3:01 PM Report E-Signed By: Osmar Hughes MD at 07/06/2018 3:06 PM WSN:[id number]
== END ==
LOC: MRI 01:57
PROVIDERS: ATTEND Psychiatry & Neurology Neurology
DX: G35 Multiple sclerosis (principal)
CPT/HCPCS: 70551

== ENCOUNTER → 2018-12-28 | Outpatient (CLI) | payer BC ==
[~2018-12-28] MED LIST changes: -DALFAM10PT GT; +DALFAM10PT PO; +DULO60CA56 PO
--- NOTE | 2018-12-28 10:34 | EKG ---
FACILITY: [facility] PATIENT NAME: LUIS PIERRE : [id number] MR: [id number] V: [id number] EXAM DATE: ORDERING PHYSICIAN: CELINE PAZ TECHNOLOGIST: KATH Parry Reason : RIGHT KNEE Blood Pressure : / mmHG Vent. Rate : 076 BPM Atrial Rate : 076 BPM P-R Int : 148 ms QRS Dur : 096 ms QT Int : 378 ms P-R-T Axes : 049 051 045 degrees QTc Int : 425 ms Normal sinus rhythm Normal ECG When compared with ECG of 22-MAR-2013 13:04, No significant change was found Confirmed by Garrett Cole ([id number]) on 12/28/2018 7:57:55 PM Referred By: JACKSON Confirmed By:Garrett Dotson
== END ==
LOC: LAB 10:15
PROVIDERS: ATTEND Orthopaedic Surgery
DX: Z01.812 Encounter for preprocedural laboratory examination (principal); Z01.810 Encounter for preprocedural cardiovascular examination
CPT/HCPCS: 36415; 82040; 82247; 82310; 82374; 82435; 82565; 82947; 84075; 84132; 84155; 84295; 84450; 84460; 84520; 93005

== ENCOUNTER 2019-01-02 01:06 | Day surgery (SDC) | payer BC ==
[~2019-01-02] VITALS: Ht 165.1 cm; Wt 92.1 kg
[2019-01-02 05:30] VITALS: BP 108/86
[2019-01-02] MEDS ORDERED: FAMOTIDINE 20 MG TAB PO ONE (05:55)
[2019-01-02] MEDS ORDERED: NORMOSOL R SOLN(*) 1000 ML BAG 1,000 ML IV PRN (06:00)
[2019-01-02] MEDS ORDERED: CELECOXIB 200 MG CAP PO ONE (06:00)
[2019-01-02] MEDS ORDERED: LIDOCAINE/SOD BICARB 8.4% SYR ID ONE (06:00)
[2019-01-02] MEDS ORDERED: CLINDAMYCIN(*) 900 MG/NS 50 ML 50 ML IVPB ONE (06:00)
[2019-01-02] MEDS ORDERED: MIDAZOLAM 2 MG/2 ML VIAL IVP PRN (06:00)
[2019-01-02] MEDS ORDERED: ROPIVACAINE 0.2% 20 ML VIAL ONE (06:22)
[2019-01-02] MEDS ORDERED: PROPOFOL EMUL(*) 10MG/ML 20 ML 20 ML ONE (06:52)
[2019-01-02] MEDS ORDERED: DEXAMETHASONE SOD PHOS 10MG/ML ONE (06:59)
[2019-01-02] MEDS ORDERED: ONDANSETRON 4 MG/2 ML VIAL ONE (06:59)
[2019-01-02] MEDS ORDERED: fentaNYL CITR 100 MCG/2 ML AMP ONE ×2 (07:00→08:18)
[2019-01-02] MEDS ORDERED: HYDR-653 PO (08:28)
--- NOTE | 2019-01-02 08:51 | OPERATIVE REPORT 1 ---
EVENT DATE: January 02, 2019 SURGEON: Rakan Leavitt MD ANESTHESIOLOGIST: Lyle Jane MD ANESTHESIA: General. HEDIS ABSTRACTOR: [place] PA-C PREOPERATIVE DIAGNOSIS Right knee meniscus tear as well as cartilage damage, loose bodies and synovitis. POSTOPERATIVE DIAGNOSIS Right knee meniscus tear as well as cartilage damage, loose bodies and synovitis. PROCEDURE PERFORMED Right knee partial medial meniscectomy, partial lateral meniscectomy, chondroplasty and minor synovectomy throughout the joint and loose fragment removal. FINDINGS The patient had a significant amount of torn cartilage associated with the knee. ESTIMATED BLOOD LOSS Minimal. DRAINS None. COMPLICATIONS None. IMPLANTS None. SPECIMENS None. TOURNIQUET TIME Just under 30 minutes. INDICATIONS AND HISTORY This patient is a 58-year old female that presented to my clinic for evaluation of right knee pain and irritation going on for some time. We knew she had some lateral cartilage damage in accordance with the MRI with a large meniscus tear on the lateral side and a little bit of a tear on the medial side and also some significant cartilage damage and loose fragments on the lateral side so we talked to her about the implications of this as well as treatment options. She wanted to go ahead with the knee arthroscopy to try and clean this up as much as possible and try and prevent a total knee as long as possible. I told her there is no guarantee that it prevents any aspect of the total knee and that it may still result in a total knee fairly quickly but she stated she wanted to try this first to try to get some relief associated with it to try and avoid the total knee as long as possible and I thought that was reasonable so we went over the risks and benefits associated with it and informed consent was obtained at the last clinic visit and we got her set up to do this today. DESCRIPTION OF PROCEDURE The patient was brought into the operating room. She and the procedure were both verified. She was placed supine on the operating table and induced intubated by anesthesia. The left lower extremity was then prepped and draped in the usual fashion. A time-out was observed, verifying the correct patient and procedure. The standard incisions were made over the front part of the knee after inflation of the tourniquet. The scope was inserted laterally into the suprapatellar pouch. I was then able to work medially and then perform a synovectomy and a chondroplasty on this side as there was a significant amount of synovitis and a large medial plica on this side. Once I was able to remove all of these sections and areas, I was then able to get into the medial compartment. There was a little bit of cartilage damage in here and a little bit of undersurface meniscus tearing so, therefore, using a combination of suction shaver and meniscal biter, I was able to trim this back to a nice stable base. There were no other major signs or problems but there was a large osteophyte in the central pivot portion. Once I looked at the ACL, there were no signs or problems with it so I did remove the large osteophyte and the loose fragment just below the level of the ACL. I then went in the lateral compartment and was able to identify large torn meniscus in the anterior aspect of the lateral meniscus and a little bit towards the posterior aspect. I had removed the majority of the anterior aspect of the meniscus as it was quite frayed, irritated and subluxed off and completely detached from the capsule. Therefore, once I removed this and then trimmed the posterior aspect to a nice stable base, I then performed chondroplasty on the distal femoral condyle as well as the proximal tibia. There were kissing lesions on this area of full thickness cartilage loss but I was able to trim it back and smooth it over. This was then followed by removal of a large lateral plica and then also some of the synovitis over this site and then removing osteophyte off the medial aspect of the distal femur from that same angle. I then switched the components to where I was viewing from the medial side and then removed the rest of the synovitis on the lateral side and performed a chondroplasty a little bit on the undersurface of the patella and also removed the remainder of the osteophyte on the medial side of the femur. I then went over another diagnostic arthroscopy and made sure there were no further signs, issues or problems associated with it and removed any loose fragments associated with the joint from up in the suprapatellar pouch as well as in the tricompartmental aspect of the knee and then removed all instrumentation, drained the fluid out of the knee, anesthetized portal sites with ropivacaine and then closed with 4-0 Monocryl and then dressed with Steri-Strips, gauze, 4x4's and a soft dressing. The tourniquet was let down. The patient was awake, extubated and transferred to PACU in stable condition. ARACELY
[2019-01-02 09:15] VITALS: BP 115/73
[2019-01-02 09:30] VITALS: BP 123/73
[2019-01-02] MEDS ORDERED: APAP/HYDROCODONE 325/5 TAB PO ONE (10:00)
--- NOTE | 2019-01-02 10:05 | NUR ---
SBAR FROM LANETTE MCKEON. LANETTE MARIN TO ASSUME CARE. NO CONCERNS. VIA PT. ASSESSMENT WNL. TOLERATING PO INTAKE. STATES PAIN IS TOLERABLE. WOULD LIKE TO START PAIN PILL PRIOR TO DISCHARGE. PT. ENCOURAGED TO COUGH AND DEEP BREATH. COACHED ON IMPORTANCE OF GOOD PULMONARY HYGIENE.
--- NOTE | 2019-01-02 10:07 | NUR ---
RN REMAINS AT BEDSIDE. PT. GIVEN LORTAB PER REQUEST.
[2019-01-02 10:12] VITALS: BP 128/88
--- NOTE | 2019-01-02 10:20 | NUR ---
ORTHOSTATIC VITALS WNL. PT. INSTRUCTED NOT TO EXCEED 3G OF APAP WITHIN 24 HOURS. INFORMED LORTAB HAS APAP IN IT. STATED UNDERSTANDING.
--- NOTE | 2019-01-02 10:22 | NUR ---
PT. DRESSING IN ROOM WITH . WAS ABLE TO STAND AND SHUFFLE TO CHAIR WITHOUT ISSUES. WILL ENSURE PT. ABLE TO AMBULATE SAFELY PRIOR TO DISCHARGE. REPORTS TWO SMALL STEPS IN HOUSE. INSTRUCTED ON HOW TO USE STAIRS WELL ALTERNATIVES TO WALKING UP STAIRS.
== END 2019-01-02 09:15 | disposition home or self-care (01) ==
LOC: OR 01:06
PROVIDERS: ATTEND Orthopaedic Surgery
DX: S83.281A Other tear of lateral meniscus, current injury, right knee, initial encounter (principal); S83.241A Other tear of medial meniscus, current injury, right knee, initial encounter
CPT/HCPCS: 29880; J1100; J2250; J2405; J2704; J2795; J3010; J3490